=== PATIENT | female | born 2000 | race Caucasian/White ===

== ENCOUNTER 2019-12-04 19:08 | Emergency (ER) | payer OTHER ==
[2019-12-04 19:18] VITALS: BP 124/79
--- NOTE | 2019-12-04 19:22 | ED Physician Documentation ---
PD HPI UPPER EXT INJURY - Stated complaint Stated Complaint: LT WRIST PX - Chief complaint Chief Complaint: Trauma Ext - History obtained from History obtained from: Patient - History of Present Illness Location: Left, Wrist Type of injury: Twist (carrying a bucket and it twisted, causing hyperextension of the wrist, with continued pain in radial side wrist since. Worse with ROM.) Timing - onset: How many weeks ago (2) Timing - duration: Weeks (2) Timing - details: Abrupt onset, Still present, Waxing and waning Associated symptoms: No: Weakness, Numbness, Swelling Similar symptoms before: Has not had sx before Review of Systems Skin: denies: Abrasion (s), Laceration (s) Neurologic: denies: Focal weakness, Numbness PD PAST MEDICAL HISTORY - Past Medical History Neuro: None Endocrine/Autoimmune: None - Present Medications Home Medications: Ambulatory Orders Medication Instructions Recorded Confirmed Fluoxetine HCl [Prozac] 20 mg PO DAILY 12/04/19 12/04/19 Hydrocodone/Acetaminophen [[place] 1 each PO Q6H PRN #15 tablet 12/04/19 5-325 Tablet] Naproxen 500 mg PO BID #20 tablet 12/04/19 - Allergies Allergies/Adverse Reactions: Allergies Allergy/AdvReac Type Severity Reaction Status Date / Time No Known Drug Allergies Allergy Verified 12/04/19 19:18 PD ED PE NORMAL - Vitals Vital signs reviewed: Yes - General General: Alert and oriented X 3, No acute distress, Well developed/nourished - Derm Derm: Normal color, Warm and dry - Extremities Extremities: Other (left wrist with tenderness dorsal radial wrist and also some to proximal to snuffbox. NO deformity, redness, swelling. ROM limited by discomfort. ) Results - Vitals Vitals: Oxygen O2 Source Room air - Rads (name of study) left wrist Radiology: Prelim report reviewed (no fractures), See rad report PD MEDICAL DECISION MAKING - ED course Complexity details: reviewed results, considered differential, d/w patient Departure - Departure Disposition: 01 Home, Self Care Clinical Impression: Left wrist sprain Qualifiers: Encounter type: initial encounter Qualified Code(s): S63.502A - Unspecified sprain of left wrist, initial encounter Condition: Stable Record reviewed to determine appropriate education?: Yes Instructions: ED Sprain Wrist Follow-Up: JOEY BURTON MD [Primary Care Provider] - [facility] [Provider Group] Prescriptions: Hydrocodone/Acetaminophen [[place] 5-325 Tablet] 1 each PO Q6H PRN #15 tablet PRN Reason: Pain Naproxen 500 mg PO BID #20 tablet Comments: Your x-ray appears normal so no bony injury. Is would still be a sprain of the ligaments and muscles of the wrist. Use the somewhat sturdier wrist and thumb splint to protect the range of motion. Anti-inflammatory such as naproxen twice daily for the next 7 to 10 days. Add Tylenol or hydrocodone if needed for worse pain. Try to limit heavy lifting and uses with the wrist over the next several days to week. Recheck if not improved well over the next several days and resolved with none a week or 2 at the most. Discharge Date/Time: 12/04/19 20:43
[2019-12-04] MEDS ORDERED: NAPROXEN 250 MG TABLET PO STA (19:50)
[2019-12-04] MEDS ORDERED: HYDROcod/ACETAM 5/325 MG TABLET PO STA (19:50)
--- NOTE | 2019-12-04 20:24 | XRAY Report ---
Reason: wrist pain; abrupt hyperextension injury Procedure Date: 12/04/2019 Accession Number: [id number] / [id number] Procedure: XR - Wrist 4 View LT CPT Code: Final Report FULL RESULT: EXAM: LEFT WRIST RADIOGRAPHY EXAM DATE: 12/04/2019 08:11 PM. CLINICAL HISTORY: Worsening wrist pain after carrying heavy loads for 2 weeks. COMPARISON: None. TECHNIQUE: 4 views. FINDINGS: Bones: Normal. No fractures or bone lesions. Joints: Normal. No subluxations. Soft Tissues: Unremarkable. IMPRESSION: Normal wrist radiography. RADIA
== END 2019-12-04 20:43 | disposition home or self-care (01) ==
LOC: ED 19:08
DX: S63.502A Unspecified sprain of left wrist, initial encounter (principal); X50.1XXA Overexertion from prolonged static or awkward postures, initial encounter; Y93.89 Activity, other specified
CPT/HCPCS: 73110; 99283; A9270

== ENCOUNTER 2020-05-02 11:00 | Emergency (ER) | payer OTHER ==
[2020-05-02 11:08] VITALS: BP 136/58
--- NOTE | 2020-05-02 12:08 | ED Physician Documentation ---
PD HPI UPPER EXT INJURY - Stated complaint Stated Complaint: LT WRIST PX - Chief complaint Chief Complaint: Trauma Ext - History obtained from History obtained from: Patient (Cleaning the floors about 5 days ago at work, the subsequent days she developed a lot of pain in the left wrist and it hurts with range of motion. 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 HEENT: None Psych: Depression Musculoskeletal: None - Past Surgical History Past Surgical History: Yes HEENT: Tonsil/Adenoidectomy - Present Medications Home Medications: Ambulatory Orders Medication Instructions Recorded Confirmed Fluoxetine HCl [Prozac] 20 mg PO DAILY 12/04/19 12/04/19 Hydrocodone/Acetaminophen [[place] 1 each PO Q6H PRN #15 tablet 12/04/19 5-325 Tablet] Naproxen 500 mg PO BID #20 tablet 12/04/19 Ibuprofen [Motrin] 800 mg PO Q8H PRN #30 tablet 05/02/20 - Allergies Allergies/Adverse Reactions: Allergies Allergy/AdvReac Type Severity Reaction Status Date / Time No Known Drug Allergies Allergy Verified 05/02/20 11:05 - Social History Does the pt smoke?: No Smoking Status: Never smoker Does the pt drink ETOH?: Yes Does the pt have substance abuse?: No - Immunizations Immunizations are current?: Yes PD ED PE NORMAL - Vitals Vital signs reviewed: Yes - General General: Alert and oriented X 3, No acute distress - Extremities Extremities: Other (Mild tenderness over the dorsal wrist and pain with flexion extension but also pain with de Quervain's tendon testing. No deformity. No redness or warmth.) - Neuro Neuro: Alert and oriented X 3, Normal speech Results - Vitals Vitals: Vital Signs - 24 hr 05/02/20 11:05 Temperature 36.5 C Heart Rate 80 Respiratory 16 Rate Blood Pressure 136/58 H O2 Saturation 100 Oxygen O2 Source Room air PD MEDICAL DECISION MAKING - ED course ED course: 20-year-old with overuse injury of the left wrist. No indication for x-rays. She already has a Velcro splint and advised to keep using this and conservative care and rest. Departure - Departure Disposition: 01 Home, Self Care Clinical Impression: Left wrist tendonitis Condition: Good Record reviewed to determine appropriate education?: Yes Instructions: ED Sprain Wrist Prescriptions: Ibuprofen [Motrin] 800 mg PO Q8H PRN #30 tablet PRN Reason: PAIN &/OR FEVER Comments: Continue wearing the velcro removable splint for now. Rest it. Use the NSAID for inflammation/pain. Followup with Your primary care physician in 1 week if not better Forms: Activity restrictions
== END 2020-05-02 12:11 | disposition home or self-care (01) ==
LOC: ED 11:00
DX: M70.88 Other soft tissue disorders related to use, overuse and pressure other site (principal); X50.9XXA Other and unspecified overexertion or strenuous movements or postures, initial encounter; Y93.E5 Activity, floor mopping and cleaning; Y99.0 Civilian activity done for income or pay
CPT/HCPCS: 99282; 99283

== ENCOUNTER 2020-07-03 09:54 | Emergency (ER) | payer OTHER ==
--- NOTE | 2020-07-03 10:48 | XRAY Report ---
PROCEDURE: Wrist 4 View LT INDICATIONS: Pain w/ROM TECHNIQUE: 4 views of the wrist were acquired. COMPARISON: 12/04/2019 FINDINGS: Bones: No fractures or dislocations. No suspicious bony lesions. Scaphoid view: Scaphoid intact Soft tissues: No suspicious soft tissue calcifications. IMPRESSION: Unremarkable left wrist plain films. Reviewed by: Sim Mathews MD on 07/03/2020 9:46 AM GUA[place] Approved by: Sim Mathews MD on 07/03/2020 9:46 AM [place]UA[place]O Station ID: [id number]
--- NOTE | 2020-07-03 11:47 | ED Physician Documentation ---
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 Patient states that she has a history of problems with the left wrist, even though she is right-hand dominant, and that her wrist was hurting last week even when she was off work. Patient denies Review of Systems Ten Systems: 10 systems reviewed and negative Constitutional: reports: Reviewed and negative Eyes: reports: Reviewed and negative Ears: reports: Reviewed and negative Nose: reports: Reviewed and negative Throat: reports: Reviewed and negative Cardiac: reports: Reviewed and negative Respiratory: reports: Reviewed and negative GI: reports: Reviewed and negative : reports: Reviewed and negative Skin: reports: Reviewed and negative Musculoskeletal: reports: Joint pain Neurologic: reports: Reviewed and negative Psychiatric: reports: Reviewed and negative Endocrine: reports: Reviewed and negative Immunocompromised: reports: Reviewed and negative PD PAST MEDICAL HISTORY - Past Medical History Cardiovascular: None Respiratory: Asthma Neuro: None Endocrine/Autoimmune: None GI: None 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 HEENT: None Psych: Depression Musculoskeletal: None - Past Surgical History Past Surgical History: Yes HEENT: Tonsil/Adenoidectomy - Present Medications Home Medications: Ambulatory Orders Medication Instructions Recorded Confirmed Fluoxetine HCl [Prozac] 20 mg PO DAILY 12/04/19 12/04/19 Hydrocodone/Acetaminophen [[place] 1 each PO Q6H PRN #15 tablet 12/04/19 5-325 Tablet] Naproxen 500 mg PO BID #20 tablet 12/04/19 Ibuprofen [Motrin] 800 mg PO Q8H PRN #30 tablet 05/02/20 - Allergies Allergies/Adverse Reactions: Allergies Allergy/AdvReac Type Severity Reaction Status Date / Time No Known Drug Allergies Allergy Verified 07/03/20 10:05 - Social History Does the pt smoke?: No Smoking Status: Never smoker Does the pt drink ETOH?: Yes Does the pt have substance abuse?: No - Immunizations Immunizations are current?: Yes PD ED PE NORMAL - Vitals Vital signs reviewed: Yes - General General: Alert and oriented X 3, No acute distress, Well developed/nourished - HEENT HEENT: Atraumatic, PERRL, EOMI, Moist mucous membranes - Neck Neck: Supple, no meningeal sign - Cardiac Cardiac: Strong equal pulses - Respiratory Respiratory: No respiratory distress - Abdomen Abdomen: Normal bowel sounds, Soft, Non tender, Non distended - Derm Derm: Normal color, Warm and dry, No rash, Other (No contusion) - Extremities Extremities: No deformity, Other (Limited ROM L wrist, secondary to pain. Mild edema. Diffuse tenderness over flexor surface.) - Neuro Neuro: Alert and oriented X 3 - Psych Psych: Normal mood, Normal affect Results - Vitals Vitals: Oxygen O2 Source Room air - Rads (name of study) L wrist XR Radiology: Final report received, EMP read indepedently, See rad report (neg) PD MEDICAL DECISION MAKING - ED course Complexity details: reviewed old records, reviewed results, re-evaluated patient, considered differential, d/w patient ED course: D/w pt that most likely, in the absence of specific trauma, she has an overuse injury. 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 She already has a brace for it. We have discussed OTC treatment, ice, and follow- up. Departure - Departure Disposition: 01 Home, Self Care Clinical Impression: Wrist pain, chronic Qualifiers: Laterality: left Qualified Code(s): M25.532 - Pain in left wrist Condition: Stable Instructions: Tendonitis and Tenosynovitis Discharge Date/Time: 07/03/20 12:10
[2020-07-03 12:01] VITALS: BP 133/89
== END 2020-07-03 12:10 | disposition home or self-care (01) ==
LOC: ED 09:54
DX: M25.532 Pain in left wrist (principal); G89.29 Other chronic pain
CPT/HCPCS: 99282; 99283

== ENCOUNTER 2020-12-27 17:15 | Emergency (ER) | payer MEDICAID, OTHER ==
--- NOTE | 2020-12-27 18:08 | XRAY Report ---
PROCEDURE: Finger(s) RT INDICATIONS: 5th digit pain TECHNIQUE: AP hand, 2 views of the fifth finger(s) acquired. COMPARISON: None FINDINGS: Bones: No fractures or dislocations. No suspicious bony lesions. Soft tissues: No suspicious soft tissue calcifications. IMPRESSION: No acute fracture. No osseous lesion. If symptoms and/or clinical suspicion for pathology continue, f urther assessment with repeat plain films, or advanced imaging (e.g., CT, MRI, or bone scan) is recom mended for further assessment. Reviewed by: Laura Callahan MD on 12/27/2020 6:07 PM PDT Approved by: Laura Callahan MD on 12/27/2020 6:07 PM PDT Station ID: [id number]
--- NOTE | 2020-12-27 18:11 | ED Physician Documentation ---
PD HPI UPPER EXT INJURY - Stated complaint Stated Complaint: RT PINKY PX - Chief complaint Chief Complaint: Trauma Ext - History obtained from History obtained from: Patient - History of Present Illness Location: Right, Finger Pain level max: 5 Pain level now: 4 Improved by: Rest Worsened by: Moving, Palpating Associated symptoms: Swelling, Discolored (bruising). No: Weakness, Numbness, Tingling Contributing factors: No: Anticoagulated Recently seen: Not recently seen - Additonal information Additional information: Patient states that she noticed pain to the right fifth digit today. Does not recall any injury. Worse with movement and better with rest. She states there is mild bruising of the right fifth digit as well. No numbness or tingling. She does have full range of motion, though there is pain. 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 HEENT: None Psych: Depression Musculoskeletal: None - Past Surgical History Past Surgical History: Yes HEENT: Tonsil/Adenoidectomy - Present Medications Home Medications: Ambulatory Orders Medication Instructions Recorded Confirmed Fluoxetine HCl [Prozac] 20 mg PO DAILY 12/04/19 12/27/20 lamoTRIgine [LaMICtal] 50 mg PO BID 12/27/20 12/27/20 - Allergies Allergies/Adverse Reactions: Allergies Allergy/AdvReac Type Severity Reaction Status Date / Time No Known Drug Allergies Allergy Verified 12/27/20 17:24 - Social History Does the pt smoke?: No Smoking Status: Never smoker Does the pt drink ETOH?: Yes Does the pt have substance abuse?: No - Immunizations Immunizations are current?: Yes PD ED PE NORMAL - Vitals Vital signs reviewed: Yes - General General: Alert and oriented X 3, No acute distress - Derm Derm: Warm and dry - Extremities Extremities: Other (R pinky - mild swelling and ecchymosis to the mid phalanx. FROM. NVI. No evidence of tendon rupture) - Neuro Neuro: Alert and oriented X 3 Results - Vitals Vitals: Vital Signs - 24 hr 12/27/20 12/27/20 17:25 18:35 Temperature 36 C L 36.8 C Heart Rate 64 67 Respiratory 18 18 Rate Blood Pressure 126/75 116/55 L O2 Saturation 99 100 Oxygen O2 Source Room air - Rads (name of study) R finger xray Radiology: Prelim report reviewed, EMP read contemporaneously, See rad report (No acute fracture. No osseous lesion. ) PD MEDICAL DECISION MAKING - ED course Complexity details: considered differential, d/w patient ED course: 20-year-old female with what appears to be a right fifth digit sprain. Declines a splint. We will continue supportive care and have her follow-up with her doctor. Patient counseled regarding signs and symptoms for which I believe and urgent re-evaluation would be necessary. Patient with good understanding of and agreement to plan and is comfortable going home at this time This document was made in part using voice recognition software. While efforts are made to proofread this document, sound alike and grammatical errors may occur. Departure - Departure Disposition: 01 Home, Self Care Clinical Impression: Sprain of finger, right Qualifiers: Encounter type: initial encounter Finger: little finger Sprain of finger site: interphalangeal joint Qualified Code(s): S63.636A - Sprain of interphalangeal joint of right little finger, initial encounter Condition: Good Instructions: ED Sprain Finger Follow-Up: Mikey Royal PA [Primary Care Provider] - Within 1 week Comments: Follow up with your doctor as needed for further care. There are no fractures on your x-rays today. This appears to be a finger sprain. Discharge Date/Time: 12/27/20 18:36
[2020-12-27 18:36] VITALS: BP 116/55
== END 2020-12-27 18:36 | disposition home or self-care (01) ==
LOC: ED 17:15
DX: S63.636A Sprain of interphalangeal joint of right little finger, initial encounter (principal); S60.051A Contusion of right little finger without damage to nail, initial encounter; X58.XXXA Exposure to other specified factors, initial encounter; Y93.E9 Activity, other interior property and clothing maintenance
CPT/HCPCS: 99282; 99283